=== PATIENT | female | born 1970 | race Caucasian/White ===

== ENCOUNTER 2016-03-18 13:48 | Emergency (ER) | payer BC ==
[2016-03-18] MEDS ORDERED: Aspirin Low Dose CHEW TAB* 81 MG PO ONE (14:24)
[2016-03-18 17:52] LABS: Hematocrit 42 % (35-47); Hemoglobin 14.2 g/dl (12.0-16.0); Mean Corpuscular HGB Conc 34 g/dl (31-36); Mean Corpuscular Hemoglobin 30 pg (27-31); Mean Corpuscular Volume 88 fL (80-97); Mean Platelet Volume 7 um3 (7.4-10.4); Red Blood Count 4.74 10^6/ul (4.0-5.4); Red Cell Distribution Width 14 % (10.5-15); White Blood Count 10.4 10^3/ul (3.5-10.8)
[2016-03-18 18:09] LABS: Albumin 4.4 g/dL (3.2-5.2); EGFR African American 106.5 (>60); EGFR Non-African American 82.8 (>60); Globulin 2.7 g/dL (2-4); Magnesium 2.7 mg/dL (1.9-2.7); Potassium 3.9 mmol/L (3.5-5.0); Total Protein 7.1 g/dL (6.4-8.9)
--- NOTE | 2016-03-18 18:10 | RAD ---
Indication: Chest pain. Single frontal view of the chest performed at 1750 hours was reviewed. Comparison is made with previous exam dated May 06, 2014. No mediastinal shift is noted. Heart is of normal size and configuration. Lung linares appear clear. IMPRESSION: NO ACTIVE CARDIOPULMONARY DISEASE IS NOTED.
[2016-03-18 18:36] LABS: T4 8.66 g/dL (6.09-12.23); TSH (Thyroid Stimulating Horm) 1.31 mcIU/mL (0.34-5.60)
[2016-03-18 20:19] VITALS: BP 148/93
--- NOTE | 2016-03-18 20:23 | ED ---
Kem Velazquez Adam, scribed for J Carlos Robert MD on 03/18/16 at 1741 . HPI Chest Pain - HPI Summary HPI Summary: Pt is a 45 year old female presenting with chest pain. She describes it as a tightness and a squeezing sensation and states that it has been happening intermittently for over a month. She also reports intermittent palpitations which are worse with exertion and after eating. Last night she ate a sandwich and then felt her heart racing and measured her HR as over 120 BPM. She also c/ o night sweats and chills. Surgical Hx of tonsillitis. Positive tobacco, alcohol , and caffeine use. FMHx of cardiac problems and cancer. - History of Current Complaint Chief Complaint: EDChestPainROMI Time Seen by Provider: 03/18/16 17:34 Hx Obtained From: Patient Onset/Duration: Started Weeks Ago, Atraumatic, Still Present Timing: Intermittent Initial Severity: Moderate Current Severity: Moderate Pain Intensity: 2 Pain Scale Used: 0-10 Numeric Chest Pain Location: Diffuse Chest Pain Radiates: No Character: Pressure/Squeezing, Tightness Aggravating Factor(s): Exertion, Other: - Eating Alleviating Factor(s): Nothing Associated Signs and Symptoms: Positive: Chills, Diaphoresis, Palpitations - Allergy/Home Medications Allergies/Adverse Reactions: Allergies Allergy/AdvReac Type Severity Reaction Status Date / Time Penicillins Allergy Mild Rash Verified 03/18/16 14:06 Varicella Virus Vaccine Live Allergy Mild Swelling Verified 03/18/16 14:06 Cashew Nut Oil Allergy Airway Verified 03/18/16 14:06 Obstruction Eggs or Egg-derived Products Allergy GI Upset Verified 03/18/16 14:06 Mushroom Extract Complex Allergy GI Upset Verified 03/18/16 14:06 PMH/Surg Hx/FS Hx/Imm Hx Endocrine/Hematology History: Denies: Hx Diabetes Cardiovascular History: Reports: Hx Angina Denies: Hx Hypertension, Hx Pacemaker/ICD, Other Cardiovascular Problems/ Disorders Respiratory History: Denies: Hx Asthma, Hx Chronic Obstructive Pulmonary Disease (COPD) History: Denies: Hx Dialysis, Hx Renal Disease Sensory History: Denies: Hx Hearing Aid Psychiatric History: Denies: Hx Panic Disorder Comment Only: Hx Depression - loss of 2004 - Cancer History Hx Chemotherapy: No Hx Radiation Therapy: No - Surgical History Surgery Procedure, Year, and Place: tonsillectomy, vericose vein correction Hx Anesthesia Reactions: No Infectious Disease History: No Infectious Disease History: Denies: Traveled Outside the [place] in Last 30 Days - Family History Known Family History: Positive: Cardiac Disease, Other - Cancer - Social History Occupation: Employed Full-time Lives: Alone Alcohol Use: Occasionally Hx Substance Use: No Substance Use Type: Reports: None Hx Tobacco Use: Yes Smoking Status (MU): Current Every Day Smoker Review of Systems Positive: Chills, Skin Diaphoresis Positive: Palpitations, Chest Pain All Other Systems Reviewed And Are Negative: Yes Physical Exam - Summary Physical Exam Summary: VITAL SIGNS: Reviewed. GENERAL: Patient is a well developed and nourished female who is lying comfortable in the stretcher. Patient is not in any acute respiratory distress. HEAD AND FACE: No signs of trauma. No ecchymosis, hematomas or skull depressions. No sinus tenderness. EYES: PERRLA, EOMI x 2, No injected conjunctiva, no nystagmus. EARS: Hearing grossly intact. Ear canals and tympanic membranes are within normal limits. MOUTH: Oropharynx within normal limits. NECK: Supple, trachea is midline, no adenopathy, no JVD, no carotid bruit, no c- spine tenderness, neck with full ROM. CHEST: Symmetric, no tenderness at palpation LUNGS: Clear to auscultation bilaterally. No wheezing or crackles. CVS: Regular rate and rhythm, S1 and S2 present, no murmurs or gallops appreciated. ABDOMEN: Soft, non-tender. No signs of distention. No rebound no guarding, and no masses palpated. Bowel sounds are normal. EXTREMITIES: FROM in all major joints, no edema, no cyanosis or clubbing. NEURO: Alert and oriented x 3. No acute neurological deficits. Speech is normal and follows commands. SKIN: Dry and warm Triage Information Reviewed: Yes Vital Signs On Initial Exam: Initial Vitals Temp Pulse Resp BP Pulse Ox 97.6 F 84 16 122/70 100 03/18/16 14:06 03/18/16 14:06 03/18/16 14:06 03/18/16 14:06 03/18/16 14:06 Vital Signs Reviewed: Yes Diagnostics - Vital Signs Vital Signs Temp Pulse Resp BP Pulse Ox 03/18/16 14:06 97.6 F 84 16 122/70 100 - Laboratory Lab Results: Lab Results 03/18/16 03/18/16 03/18/16 Range/Units 17:40 17:40 17:40 WBC 10.4 (3.5-10.8) 10^3/ul RBC 4.74 (4.0-5.4) 10^6/ul Hgb 14.2 (12.0-16.0) g/dl Hct 42 (35-47) % MCV 88 (80-97) fL MCH 30 (27-31) pg MCHC 34 (31-36) g/dl RDW 14 (10.5-15) % Plt Count 318 (150-450) 10^3/ul MPV 7 L (7.4-10.4) um3 Neut % (Auto) 63.7 (38-83) % Lymph % (Auto) 26.8 (25-47) % Armstrong % (Auto) 5.6 (1-9) % Eos % (Auto) 2.8 (0-6) % Baso % (Auto) 1.1 (0-2) % Absolute Neuts (auto) 6.6 (1.5-7.7) 10^3/ul Absolute Lymphs (auto) 2.8 (1.0-4.8) 10^3/ul Absolute Monos (auto) 0.6 (0-0.8) 10^3/ul Absolute Eos (auto) 0.3 (0-0.6) 10^3/ul Absolute Basos (auto) 0.1 (0-0.2) 10^3/ul Absolute Nucleated RBC 0.01 10^3/ul Nucleated RBC % 0.1 D-Dimer, Quantitative (Less Than 230) ng/mL Sodium 137 (133-145) mmol/L Potassium 3.9 (3.5-5.0) mmol/L Chloride 102 (101-111) mmol/L Carbon Dioxide 28 (22-32) mmol/L Anion Gap 7 (2-11) mmol/L BUN 21 (6-24) mg/dL Creatinine 0.75 (0.51-0.95) mg/dL Est GFR ( Amer) 106.5 (>60) Est GFR (Non-Af Amer) 82.8 (>60) BUN/Creatinine Ratio 28.0 H (8-20) Glucose 92 (70-100) mg/dL Calcium 10.0 (8.6-10.3) mg/dL Magnesium 2.7 (1.9-2.7) mg/dL Total Bilirubin 1.00 (0.2-1.0) mg/dL AST 23 (13-39) U/L ALT 35 (7-52) U/L Alkaline Phosphatase 64 (34-104) U/L Total Creatine Kinase 58 (10-223) U/L CK-MB (CK-2) 1.4 (0.6-6.3) ng/mL Myoglobin 16.2 (14.3-65.8) ng/mL Troponin I 0.00 (<0.04) ng/mL B-Natriuretic Peptide 32 ( - 100) pg/mL Total Protein 7.1 (6.4-8.9) g/dL Albumin 4.4 (3.2-5.2) g/dL Globulin 2.7 (2-4) g/dL Albumin/Globulin Ratio 1.6 (1-3) TSH 1.31 (0.34-5.60) mcIU/mL Thyroxine (T4) 8.66 (6.09-12.23) g/dL 03/18/16 Range/Units 17:40 WBC (3.5-10.8) 10^3/ul RBC (4.0-5.4) 10^6/ul Hgb (12.0-16.0) g/dl Hct (35-47) % MCV (80-97) fL MCH (27-31) pg MCHC (31-36) g/dl RDW (10.5-15) % Plt Count (150-450) 10^3/ul MPV (7.4-10.4) um3 Neut % (Auto) (38-83) % Lymph % (Auto) (25-47) % Armstrong % (Auto) (1-9) % Eos % (Auto) (0-6) % Baso % (Auto) (0-2) % Absolute Neuts (auto) (1.5-7.7) 10^3/ul Absolute Lymphs (auto) (1.0-4.8) 10^3/ul Absolute Monos (auto) (0-0.8) 10^3/ul Absolute Eos (auto) (0-0.6) 10^3/ul Absolute Basos (auto) (0-0.2) 10^3/ul Absolute Nucleated RBC 10^3/ul Nucleated RBC % D-Dimer, Quantitative < 200 (Less Than 230) ng/mL Sodium (133-145) mmol/L Potassium (3.5-5.0) mmol/L Chloride (101-111) mmol/L Carbon Dioxide (22-32) mmol/L Anion Gap (2-11) mmol/L BUN (6-24) mg/dL Creatinine (0.51-0.95) mg/dL Est GFR ( Amer) (>60) Est GFR (Non-Af Amer) (>60) BUN/Creatinine Ratio (8-20) Glucose (70-100) mg/dL Calcium (8.6-10.3) mg/dL Magnesium (1.9-2.7) mg/dL Total Bilirubin (0.2-1.0) mg/dL AST (13-39) U/L ALT (7-52) U/L Alkaline Phosphatase (34-104) U/L Total Creatine Kinase (10-223) U/L CK-MB (CK-2) (0.6-6.3) ng/mL Myoglobin (14.3-65.8) ng/mL Troponin I (<0.04) ng/mL B-Natriuretic Peptide ( - 100) pg/mL Total Protein (6.4-8.9) g/dL Albumin (3.2-5.2) g/dL Globulin (2-4) g/dL Albumin/Globulin Ratio (1-3) TSH (0.34-5.60) mcIU/mL Thyroxine (T4) (6.09-12.23) g/dL Result Diagrams: 03/18/16 17:40 03/18/16 17:40 Lab Statement: Any lab studies that have been ordered have been reviewed, and results considered in the medical decision making process. - Radiology CXR Xray Interpretation: No Acute Changes Radiology Interpretation Completed By: Radiologist - EKG 14:06 Cardiac Rate: NL - 78 BPM EKG Rhythm: Sinus Rhythm - Normal EKG Interpretation: No ST elevations - Additional Comments Diagnostic Additional Comments: Troponin I - 0.00 Chest Pain Course/Dx - Course Assessment/Plan: Pt is a 45 year old female presenting with chest pain. She describes it as a tightness and a squeezing sensation and states that it has been happening intermittently for over a month. She also reports intermittent palpitations which are worse with exertion and after eating. Last night she ate a sandwich and then felt her heart racing and measured her HR as over 120 BPM. She also c/o night sweats and chills. Blood work foun wnl. Troponin is 0.0. D Dimer is less than 200. CXR shows no acute pulmonary dz. EKG NSR no RE similar to an EKG on 05/06/14. Patient reports that all symptoms have resolved. Because the patient has no significant comorbidities and no family history of cardiovascular disease the patient will be discharged home with follow up of PMD. I discussed all the findings and test results with the patient. Patient was instructed to return to the emergency room immediately if any of the symptoms return or worsens. Patient understands and agrees. Plan of care was discussed with the patient and patient understands and agrees. All questions were answered at patient satisfaction. There were no further complaints or concerns. PE before discharge: CVS: S1 and S2 present. No murmurs appreciated. Abdominal exam before discharge: Soft, non-tender. No signs of distention. No rebound no guarding, and no masses palpated. Bowel sounds are normal. Patient is alert and oriented x 3. Patient is hemodynamically stable. - Chest Pain Differential Diagnosis/HQI/PQRI: ACS, Angina, Chest Wall, GI Disease, Lower Respiratory Infection, Pulmonary Embolism - Diagnoses Provider Diagnoses: Chest pain Discharge - Discharge Plan Condition: Stable Disposition: HOME Patient Education Materials: Chest Pain (ED) Referrals: Jhonatan Bui MD [Primary Care Provider] - Additional Instructions: Follow up with Dr. Bui. The documentation as recorded by the Kem moya Adam accurately reflects the service I personally performed and the decisions made by me, J Carlos Robert MD.
== END 2016-03-18 20:26 | disposition home or self-care (01) ==
LOC: ED 13:48
DX: R07.9 Chest pain, unspecified (principal); F17.210 Nicotine dependence, cigarettes, uncomplicated; R68.83 Chills (without fever); R00.2 Palpitations
CPT/HCPCS: 36415; 71010; 80053; 82550; 82553; 83735; 83874; 83880; 84436; 84443; 84484; 85025; 85379; 93005; 99284; A9270-GY

== ENCOUNTER 2020-12-27 07:25 | Observation (INO) ==
[~2020-12-27 07:25] MED LIST: Buffered Lidocaine 1% SYRIN 1 ml INTRADERM ONE; Lactated Ringers 1000 ml BAG 1,000 ML IV SCH
[2020-12-27] MEDS ORDERED: Clindamycin 900 MG/D5W BAG 900 MG/50 ML BAG IVPB ONE (07:56)
[2020-12-27] MEDS ORDERED: Lidocaine 2% PF 5 ML VIAL ONE (08:15)
[2020-12-27] MEDS ORDERED: Phenylephrine IV 10 MG/ML 1 ml VIAL ONE (08:15)
[2020-12-27] MEDS ORDERED: fentaNYL 100 mcg/2 ml 50 MCG/ML VIAL ONE (09:40)
[2020-12-27] MEDS ORDERED: Midazolam 2 mg/2 ml VIAL 1 mg/ml 2 ml VIAL (2 mg) ONE ×2 (09:40→13:03)
[2020-12-27] MEDS ORDERED: Propofol 10 MG/ML 20 ML BTL ONE ×3 (10:37→12:16)
[2020-12-27] MEDS ORDERED: Naloxone 0.4 mg VIAL 0.4 mg/ml 1 ml VIAL IV PRN (10:46)
[2020-12-27] MEDS ORDERED: DiMENhydriNATE IV 50 mg/ml 1 ml VIAL IV PUSH PRN (10:46)
[2020-12-27] MEDS ORDERED: Ondansetron 4 mg VIAL 2 MG/ML 2 ml VIAL ONE (10:55)
[2020-12-27] MEDS ORDERED: Dexamethasone IV 4 MG/ML VIAL 1 ml VIAL ONE (10:55)
[2020-12-27] MEDS ORDERED: Lactulose 30 ml UDC PO PRN (12:41)
[2020-12-27] MEDS ORDERED: Ondansetron ODT 4 mg TAB 4 MG TAB PO PRN (12:41)
[2020-12-27] MEDS ORDERED: diPHENhydraMINE IV 50 MG/ML 1 ml VIAL (BENADRYL) IV PRN (12:41)
[2020-12-27] MEDS ORDERED: Morphine 2 MG/ML SYRINGE IV PRN (12:41)
[2020-12-27] MEDS ORDERED: Magnesium Hydroxide LIQ 30 ML UDC PO PRN (12:41)
[2020-12-27] MEDS ORDERED: Ondansetron 4 mg VIAL 2 MG/ML 2 ml VIAL IV PRN (12:41)
[2020-12-27] MEDS ORDERED: diPHENhydraMINE 25 mg TAB PO PRN (12:41)
[2020-12-27] MEDS ORDERED: HYDROmorphone 1 MG/1 ML SYRINGE ONE ×2 (12:45→13:47)
[2020-12-27] MEDS ORDERED: HYDROcodone/ACETAMIN 5/325 mg TAB ONE (12:46)
[2020-12-27] MEDS: HYDROmorphone 1 MG/1 ML SYRINGE IV PRN ×6 (12:47→14:03)
[2020-12-27] MEDS ORDERED: Midazolam 2 mg/2 ml VIAL 1 mg/ml 2 ml VIAL (2 mg) IV SLOW PU ONE (12:59)
[2020-12-27] MEDS: Lactated Ringers 1000 ml BAG 1,000 ML IV SCH (14:00)
[2020-12-27] MEDS ORDERED: Flu vaccine *QUAD* 2021-22* 0.5 ML SYRINGE IM ONE (16:00)
[2020-12-27] MEDS ORDERED: Nicotine Lozenge mini 4 MG LOZNG.MINI MT PRN (17:01)
[2020-12-27] MEDS: Clindamycin 600 MG/D5W BAG 600 MG/50 ML BAG IV SCH (18:31)
[2020-12-27] MEDS: Magnesium Hydroxide LIQ 30 ML UDC PO SCH (20:47)
[2020-12-28] MEDS: Clindamycin 600 MG/D5W BAG 600 MG/50 ML BAG IV SCH ×2 (01:27→09:37)
[2020-12-28] MEDS: Lactated Ringers 1000 ml BAG 1,000 ML IV SCH (01:31)
[2020-12-28] MEDS: Magnesium Hydroxide LIQ 30 ML UDC PO SCH (08:01)
[2020-12-28 09:00] LABS: Hematocrit 34 % (35-47); Hemoglobin 11.5 g/dL (12.0-16.0); Mean Platelet Volume 6.9 fL (7.4-10.4); Platelet Count 254 10^3/uL (150-450)
[2020-12-28] MEDS ORDERED: Vitamin THERAPEUTIC TAB PO SCH (09:00)
[2020-12-28] MEDS ORDERED: Flu vaccine *QUAD* 2021-22* 0.5 ML SYRINGE IM ONE (09:00)
[2020-12-28] MEDS ORDERED: Nicotine PATCH 14 MG/24 HR PATCH TRANSDERM SCH (09:00)
[2020-12-28 09:16] LABS: Calcium 8.6 mg/dL (8.6-10.3); Potassium 3.9 mmol/L (3.5-5.0)
[2020-12-28 12:57] VITALS: BP 103/58
== END 2020-12-28 13:20 | disposition home or self-care (01) ==
LOC: SSU 07:25 → OR 07:25
PROVIDERS: ADMIT Orthopaedic Surgery Adult Reconstructive Orthopaedic Surgery; ATTEND Orthopaedic Surgery Adult Reconstructive Orthopaedic Surgery

== ENCOUNTER 2022-02-25 20:54 | Observation (INO) ==
[2022-02-25 21:36] LABS: ABS Basophils 0.1 10^3/ul (0-0.2); ABS Eosinophils 0.5 10^3/ul (0-0.6); ABS Lymphocytes 3.3 10^3/ul (1.0-4.8); ABS Monocytes 0.6 10^3/ul (0-0.8); Eosinophil % 5.1 %; Hematocrit 46 % (35-47); Hemoglobin 15.8 g/dL (12.0-16.0); Lymphocyte % 31.1 %; Mean Corpuscular HGB Conc 34 g/dL (31-36); Mean Corpuscular Hemoglobin 30 pg (27-31); Mean Corpuscular Volume 88 fL (80-97); Mean Platelet Volume 7.5 fL (7.4-10.4); Nucleated Red Blood Cells % 0.1; Platelet Count 294 10^3/uL (150-450); Red Blood Count 5.25 10^6 /uL (3.70-4.87); Red Cell Distribution Width 13 % (10-15); White Blood Count 10.5 10^3/uL (3.5-10.8)
[2022-02-25 21:44] LABS: INR 0.97 (0.88-1.18)
[2022-02-25 22:20] LABS: Albumin 4.8 g/dL (3.2-5.2); Albumin/Globulin Ratio 1.8 (1-3); Calcium 9.2 mg/dL (8.6-10.3); Globulin 2.6 g/dL (2-4); Magnesium 2.1 mg/dL (1.9-2.7); Potassium 3.8 mmol/L (3.5-5.0); Total Bilirubin 0.7 mg/dL (0.2-1.0); Total Protein 7.4 g/dL (6.4-8.9)
[2022-02-25] MEDS ORDERED: NS 0.9% 1000 ml BAG 1,000 ML IV ONE (22:25)
[2022-02-25] MEDS ORDERED: Enoxaparin 100 MG/ML SYR SUBCUT ONE (22:26)
[2022-02-25] MEDS ORDERED: NS 0.9% 1000 ml BAG 1,000 ML IV SCH (22:30)
[2022-02-25 22:34] LABS: TSH Ultra Thyroid Stim Horm 2.95 mcIU/mL (0.34-5.60)
[2022-02-25 22:56] LABS: High Sensitivity Troponin 1 Hr 4 pg/mL (<15)
[2022-02-26] MEDS ORDERED: Digoxin IV 0.5 MG/2 ML AMP (0.25 MG/ML) IV SLOW PU ONE (00:05)
[2022-02-26] MEDS ORDERED: Potassium Chlor 20 meq TAB.ER PO ONE (00:45)
[2022-02-26] MEDS ORDERED: Lorazepam PYXIS KEY PRN (00:51)
[2022-02-26] MEDS ORDERED: Acetaminophen IV 1 GM/100ML 1,000 MG/100 ML BAG IV PRN (00:51)
[2022-02-26] MEDS ORDERED: LORazepam 2 mg VIAL 1 ml IV PUSH ONE (00:51)
[2022-02-26] MEDS ORDERED: Lactated Ringers 1000 ml BAG 1,000 ML IV ONE (01:12)
[2022-02-26] MEDS ORDERED: Iohexol 350 (CONTRAST) 500 ML MDV IV ONE (01:29)
[2022-02-26 05:16] LABS: ABS Basophils 0.1 10^3/ul (0-0.2); ABS Eosinophils 0.5 10^3/ul (0-0.6); ABS Lymphocytes 2.1 10^3/ul (1.0-4.8); ABS Monocytes 0.5 10^3/ul (0-0.8); ABS Neutrophils 5.7 10^3/ul (1.5-7.7); Eosinophil % 5.7 %; Hematocrit 40 % (35-47); Hemoglobin 13.7 g/dL (12.0-16.0); Lymphocyte % 23.4 %; Mean Corpuscular HGB Conc 35 g/dL (31-36); Mean Corpuscular Hemoglobin 30 pg (27-31); Mean Corpuscular Volume 87 fL (80-97); Mean Platelet Volume 7.1 fL (7.4-10.4); Nucleated Red Blood Cells % 0.1; Platelet Count 270 10^3/uL (150-450); Red Blood Count 4.53 10^6 /uL (3.70-4.87); Red Cell Distribution Width 13 % (10-15); White Blood Count 8.9 10^3/uL (3.5-10.8)
[2022-02-26 05:24] LABS: INR 1.1 (0.88-1.18)
[2022-02-26 06:12] LABS: Calcium 8.5 mg/dL (8.6-10.3); Potassium 4.7 mmol/L (3.5-5.0); eGFR CKD-EPI 90.8 (>60)
[2022-02-26] MEDS ORDERED: Nicotine GUM 4MG FRUIT FLAVOR PO PRN (07:30)
[2022-02-26] MEDS ORDERED: Nicotine PATCH 21 MG/24 HR PATCH TRANSDERM SCH (08:00)
[2022-02-26] MEDS ORDERED: Multivitamins/Minerals TAB PO SCH (09:00)
[2022-02-26] MEDS ORDERED: Enoxaparin 100 MG/ML SYR SUBCUT SCH (11:00)
[2022-02-26 11:03] VITALS: BP 135/98
== END 2022-02-26 10:25 | disposition home or self-care (01) ==
LOC: ED 20:54 → INTOOBSV 02-26 00:43 → EDHOLD 02-26 00:43 → ICU 02-26 02:57
PROVIDERS: ADMIT Internal Medicine Critical Care Medicine; ATTEND Internal Medicine Critical Care Medicine